=== PATIENT | male | born 1955 | race Caucasian/White ===

== ENCOUNTER 2018-01-13 09:41 | Emergency (ER) | payer OTHER ==
[2018-01-13] MEDS: METHOCARBAMOL 500 MG TAB PO (10:41)
[2018-01-13] MEDS: GABAPENTIN 300 MG CAP PO (10:41)
[2018-01-13] MEDS: KETOROLAC 60 MG/2 ML VIAL (J1885) IM (10:42)
== END 2018-01-13 11:06 | disposition home or self-care (01) ==
LOC: M ED 09:41
DX: M54.31 Sciatica, right side (principal); E11.9 Type 2 diabetes mellitus without complications; I10 Essential (primary) hypertension; E78.5 Hyperlipidemia, unspecified; J44.9 Chronic obstructive pulmonary disease, unspecified; K21.9 Gastro-esophageal reflux disease without esophagitis; N40.0 Benign prostatic hyperplasia without lower urinary tract symptoms; Z86.73 Personal history of transient ischemic attack (TIA), and cerebral infarction without residual deficits; Z72.0 Tobacco use; Z79.899 Other long term (current) drug therapy; Z79.02 Long term (current) use of antithrombotics/antiplatelets; Z79.891 Long term (current) use of opiate analgesic; Z79.4 Long term (current) use of insulin
CPT/HCPCS: J1885